=== PATIENT | male | born 1985 | race Two or more races ===

== ENCOUNTER 2016-05-18 16:42 | Emergency (ER) | payer OTHER ==
--- NOTE | 2016-05-18 16:53 | ER Document Report ---
ED Medical Screen (RME) - General Stated Complaint: VOMITING Mode of Arrival: Medic Information source: Patient Notes: Patient presents with nausea, vomiting, and diarrhea. Patient has had generalized body aches. Symptoms started today. EMS reports that patient was having muscle spasms. Patient was given Zofran 8 mg, 1 L IV fluid, and 1 L of LR. Cramping resolved after IV fluid administration. Upon arrival to emergency department patient went to the cafeteria and eat a meal. hx: PTSD I have greeted and performed a rapid initial assessment of this patient. A comprehensive ED assessment and evaluation of the patient, analysis of test results and completion of the medical decision making process will be conducted by additional ED providers. TRAVEL OUTSIDE OF THE [place] 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 Endocrine Medical History: Denies: Hx Diabetes Mellitus Type 2 GI Medical History: Denies: Hx Gastritis, Hx Gastroesophageal Reflux Disease Skin Medical History: Denies Hx Cellulitis, Denies Hx MRSA Past Surgical History: Reports: Hx Orthopedic Surgery - left knee, right shoulder - Immunizations Hx Diphtheria, Pertussis, Tetanus Vaccination: Yes - 2011 Physical Exam - Vital signs Vitals: Temp Pulse Resp BP Pulse Ox 98.0 F 94 18 113/67 97 05/18/16 16:54 05/18/16 16:54 05/18/16 16:54 05/18/16 16:54 05/18/16 16:54 - General General appearance: Appears well, Alert Course - Vital Signs Vital signs: Temp Pulse Resp BP Pulse Ox 98.0 F 94 18 113/67 97 05/18/16 16:54 05/18/16 16:54 05/18/16 16:54 05/18/16 16:54 05/18/16 16:54
[2016-05-18 18:21] LABS: ABSOLUTE LYMPHOCYTES (AUTO) 0.7 10^3/uL (0.5-4.7); ABSOLUTE MONOCYTES (AUTO) 0.5 10^3/uL (0.1-1.4); BASOPHILS % (AUTO) 0.1 % (0-2); EOSINOPHILS % (AUTO) 0.3 % (0-6); HEMATOCRIT 46.1 % (37.9-51.0); HEMOGLOBIN 15.6 g/dL (13.5-17.0); HGB HCT DIFFERENCE 0.7; MEAN CORPUSCULAR HEMOGLOBIN 29.9 pg (27.0-33.4); MEAN CORPUSCULAR VOLUME 88 fl (80-97); MONOCYTES % (AUTO) 8.7 % (3-13); RED BLOOD COUNT 5.24 10^6/uL (4.35-5.55); RED CELL DISTRIBUTION WIDTH 13.3 % (11.5-14.0); SEGMENTED NEUTROPHILS % (AUTO) 79.9 % (42-78); WHITE BLOOD COUNT 6.2 10^3/uL (4.0-10.5)
[2016-05-18 18:25] LABS: APPEARANCE,URINE CLEAR; BILIRUBIN,URINE NEGATIVE (NEGATIVE); GLUCOSE, URINE NEGATIVE (NEGATIVE); KETONES,URINE NEGATIVE (NEGATIVE); LEUKOCYTE ESTERASE,URINE NEGATIVE (NEGATIVE); NITRITE,URINE NEGATIVE (NEGATIVE); PROTEIN,URINE NEGATIVE (NEGATIVE); URINE SPECIFIC GRAVITY 1.017; UROBILINOGEN,URINE NEGATIVE mg/dL (<2.0)
[2016-05-18 18:38] LABS: ALANINE AMINOTRANSFERASE 74 U/L (21-72); ALBUMIN 4.5 g/dL (3.5-5.0); ALKALINE PHOSPHATASE 74 U/L (38-126); ANION GAP 11 (5-19); ASPARTATE AMINO TRANSFERASE 35 U/L (17-59); BILIRUBIN,TOTAL 1.8 mg/dL (0.2-1.3); BLOOD UREA NITROGEN 16 mg/dL (7-20); CALCIUM 9.6 mg/dL (8.4-10.2); CARBON DIOXIDE 28 mmol/L (22-30); CHLORIDE 101 mmol/L (98-107); CREATINE KINASE 284 U/L (55-170); CREATININE RESULT 0.95 mg/dL (0.52-1.25); GLUCOSE 73 mg/dL (75-110); LIPASE 103.2 U/L (23-300); POTASSIUM 4.3 mmol/L (3.6-5.0); SODIUM 139.9 mmol/L (137-145); TOTAL PROTEIN 7.2 g/dL (6.3-8.2)
--- NOTE | 2016-05-18 21:09 | ER Document Report ---
ED GI/ - General Chief Complaint: Nausea/Vomiting/Diarrhea Stated Complaint: VOMITING Mode of Arrival: Medic Information source: Patient Notes: This is a 31-year-old male who presents with nausea vomiting diarrhea. He states that he awoke at 4:00 this morning with the symptoms and has had multiple episodes of vomiting and diarrhea since. Around noon, he experienced for body cramping which worried him and he called EMS. EMS did give 1 L normal saline IV as well as 8 mg of Zofran. Patient has since received a second liter of IV fluids and has been tolerating by mouth since the Zofran. He was actually noted to leave the ER and eat at the cafeteria. He denies any known sick contacts recently and no recent travel. TRAVEL OUTSIDE OF THE [place] 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 EENT: Denies eye, ear, throat, or mouth pain or symptoms. Denies nasal or sinus congestion. CARDIOVASCULAR: Denies chest pain. RESPIRATORY: Denies cough, cold, or chest congestion. Denies shortness of breath, difficulty breathing, or wheezing. GASTROINTESTINAL: As per history of present illness GENITOURINARY: Denies difficulty urinating, painful urination, burning, frequency, or blood in urine. MUSCULOSKELETAL: Denies neck or back pain or joint pain or swelling. SKIN: Denies rash or skin lesions. HEMATOLOGIC : Denies easy bruising or bleeding. LYMPHATIC: Denies swollen, enlarged glands. NEUROLOGICAL: Denies altered mental status or loss of consciousness. Denies headache. PSYCHIATRIC: Denies anxiety or stress or depression. ALL OTHER SYSTEMS REVIEWED AND NEGATIVE. Physical Exam - Vital signs Vitals: Temp Pulse Resp BP Pulse Ox 98.0 F 94 18 113/67 97 05/18/16 16:54 05/18/16 16:54 05/18/16 16:54 05/18/16 16:54 05/18/16 16:54 - Notes Notes: PHYSICAL EXAMINATION: GENERAL: Well-appearing, well-nourished and in no acute distress. HEAD: Atraumatic, normocephalic. EYES: Pupils equal round and reactive to light, extraocular movements intact, sclera anicteric, conjunctiva are normal. ENT: nares patent, oropharynx clear without exudates. Moist mucous membranes. NECK: Normal range of motion, supple without lymphadenopathy LUNGS: Breath sounds clear to auscultation bilaterally and equal. No wheezes rales or rhonchi. HEART: Regular rate and rhythm without murmurs ABDOMEN: Soft, nontender, normoactive bowel sounds. No guarding, no rebound. No masses appreciated. EXTREMITIES: Normal range of motion, no pitting or edema. No cyanosis. NEUROLOGICAL: Cranial nerves grossly intact. Normal speech, normal gait. Normal sensory, motor exams PSYCH: Normal mood, normal affect. SKIN: Warm, Dry, normal turgor, no rashes or lesions noted. Course - Vital Signs Vital signs: Temp Pulse Resp BP Pulse Ox 98.2 F 75 16 110/71 98 05/18/16 21:15 05/18/16 21:15 05/18/16 21:15 05/18/16 21:15 05/18/16 21:15 - Laboratory Result Diagrams: 05/18/16 18:00 05/18/16 18:00 Laboratory results interpreted by me: 05/18/16 05/18/16 05/18/16 18:00 18:00 18:00 Plt Count 141 L Seg Neutrophils % 79.9 H Lymphocytes % 11.0 L Glucose 73 L Total Bilirubin 1.8 H ALT 74 H Creatine Kinase 284 H Urine Ascorbic Acid 40 H Discharge - Discharge Clinical Impression: Nausea vomiting and diarrhea Condition: Stable Disposition: HOME, SELF-CARE Additional Instructions: VOMITING: Vomiting (or nausea without vomiting) can be caused by many other different problems. It can mean that something's wrong with the stomach, such as ulcers or inflammation or the intestinal tract, such as appendicitis. But it can also be a symptom of a problem that has nothing to do with the stomach or intestines. Vomiting is common with severe headaches, earaches, tonsillitis, and kidney infections, etc. We see it with pneumonia or heart attacks. Drugs can cause nausea and vomiting. Many abdominal problems cause vomiting; for example, gallstones, kidney stones, pancreatitis, and intestinal obstruction ( blocked bowels). In most cases, curing the vomiting depends on fixing the problem that caused it. For temporary relief, we may use an anti-nausea medicine. For home use, we can prescribe suppositories, chewable pills, pills that dissolve in the mouth, or liquid anti-nausea drugs. If the vomiting seems to be caused by a problem in the stomach, acid-suppressing drugs may be prescribed as well. It's important to avoid dehydration. Sip small amounts of clear liquids ( soft drinks, tea, broth, etc) . Try to take fluids frequently even if you are vomiting to prevent dehydration. Take increasing amounts of fluid and when liquids are being consumed successfully, advance to small amounts of bland food (toast, soups, mashed potatoes, etc.) until you are able to resume a regular diet. Avoid aspirin, tobacco, and alcohol. If the vomiting worsens, if the problem that's making you vomit worsens, or if there's evidence of bleeding in the stomach (such as black, tarry stool, or bloody or black vomit), you should return immediately. Also, return if abdominal pain worsens or becomes localized to one area or you develop high fever. Call your doctor if you aren't improved in 24 hours. DIARRHEA, NON-SPECIFIC: Diarrhea means frequent, watery stools. There are many causes. Any problem that keeps the intestinal tract from absorbing water from the stool can lead to diarrhea. A sudden new diarrhea problem is usually caused by a virus, food sensitivity, toxic bacteria, or drugs. In this case, we expect the problem to go away soon. Testing is done only if you seem seriously ill from the diarrhea. If you have chronic diarrhea, or diarrhea that keeps coming back, we need to find out why. Chronic diarrhea can be due to inflammation of the bowels such as Crohn's disease or ulcerative colitis, food sensitivity such as intolerance to lactose or wheat protein, irritable bowel syndrome, and other problems. If your diarrhea is a significant problem but it's not clear why you have it, we' ll refer you to a specialist for further testing. During an episode of diarrhea, drink small amounts (two to six ounces) of clear liquids (soft drinks, sport drinks, herb teas, broth, etc). Take fluids frequently to prevent dehydration. It's usually not a problem to take mild anti- diarrhea medication such as Kaopectate or Pepto-Bismol. As the diarrhea eases, advance to small amounts of bland food (mashed potato, toast) for 24 hours. Call the physician if blood appears in your vomit or stool, if vomiting lasts longer than 24 hours, if the abdominal pain worsens or becomes localized to one area, if you develop high fever, or if you become lightheaded and weak. VIRAL SYNDROME: The physician has diagnosed a viral infection. Viruses not only cause "colds," but can cause many different symptoms including generalized aching, fever, headache, cough, diarrhea, nausea, vomiting, and fatigue. The treatment, for the most part, is simply relief of symptoms. This means that antibiotics are usually not given. Rest, fluids, pain medications and, occasionally, medication for the specific symptoms that are most bothersome will be prescribed. Use good handwashing to avoid passing the virus to others. Shared toys should be cleaned with disinfectant. Clean the toilets, sinks, and counter surfaces in bathrooms. Launder clothing in hot water. Contact the physician if you develop any new or unusual symptoms such as severe headache, stiff neck, high fever, chest pain, productive cough, or shortness of breath. You should be rechecked if you don't see marked improvement within seven to 10 days. INTRAVENOUS (I V) FLUIDS: As part of your care today, you received intravenous (IV) fluids. IV fluids are administered to patients who are dehydrated or to those who have certain chemical (electrolyte) abnormalities that need correcting. ANTINAUSEA MEDICATION: You have been given a medication to suppress nausea and vomiting. This type of medication can be given as a shot, pill, or suppository. It will usually last for many hours. Pills and shots usually last six to eight hours. For the typical illness, only one or two doses of the medication may be necessary. Mild lightheadedness may occur. This type of medicine can cause drowsiness. Do not drive or operate dangerous machinery while under its influence. Do not mix with alcohol. See your doctor at once if you have muscle spasms or tightness, or uncontrollable motions (particularly of the neck, mouth, or jaw). Persistent vomiting or severe lightheadedness should also be evaluated by the physician. FOLLOW-UP CARE: If you have been referred to a physician for follow-up care, call the physician s office for an appointment as you were instructed or within the next two days. If you experience worsening or a significant change in your symptoms, notify the physician immediately or return to the Emergency Department at any time for re-evaluation. Prescriptions: Ondansetron [Zofran Odt 4 mg Tablet] 1 - 2 tab PO Q4H PRN #15 tab.rapdis PRN Reason: For Nausea/Vomiting
[2016-05-18 21:16] VITALS: BP 110/71
== END 2016-05-18 21:16 | disposition home or self-care (01) ==
LOC: ER 16:42
DX: R11.2 Nausea with vomiting, unspecified (principal); R19.7 Diarrhea, unspecified; R25.2 Cramp and spasm
CPT/HCPCS: 36415; 80053; 81001; 82550; 83690; 85025; 99284

== ENCOUNTER 2016-07-24 12:23 | Emergency (ER) | payer OTHER ==
[2016-07-24 12:33] VITALS: BP 146/85
--- NOTE | 2016-07-24 12:46 | ER Document Report ---
ED General - General Chief Complaint: Toothache Stated Complaint: TOOTH PAIN Mode of Arrival: Ambulatory Information source: Patient Notes: Patient's a 31-year-old male who presents with right upper tooth pain that started 5 days ago. He states he thought it was improving then over the past 2 days that worsened. He denies any facial swelling, gum swelling, drainage, difficulty breathing or difficulty swallowing. He denies any fever or chills but significant other in the room states she thought he did have a fever 2 days ago. He has tried Tylenol and ibuprofen at home with no relief. He does not have a dentist but plans on following up with one in [place]. TRAVEL OUTSIDE OF THE [place] 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 Endocrine Medical History: Denies: Hx Diabetes Mellitus Type 2 Renal/ Medical History: Denies: Hx Peritoneal Dialysis GI Medical History: Denies: Hx Gastritis, Hx Gastroesophageal Reflux Disease Skin Medical History: Denies Hx Cellulitis, Denies Hx MRSA Past Surgical History: Reports: Hx Orthopedic Surgery - left knee, right shoulder - Immunizations Hx Diphtheria, Pertussis, Tetanus Vaccination: Yes - 2011 Review of Systems - Review of Systems Constitutional: See HPI EENT: See HPI Cardiovascular: No symptoms reported Respiratory: No symptoms reported Gastrointestinal: No symptoms reported Genitourinary: No symptoms reported Male Genitourinary: No symptoms reported Musculoskeletal: No symptoms reported Skin: No symptoms reported Hematologic/Lymphatic: No symptoms reported Neurological/Psychological: No symptoms reported Physical Exam - Vital signs Vitals: Temp Pulse Resp BP Pulse Ox 98.9 F 86 18 146/85 H 100 07/24/16 12:32 07/24/16 12:32 07/24/16 12:32 07/24/16 12:32 07/24/16 12:32 Interpretation: Hypertensive - Notes Notes: PHYSICAL EXAM: CONSTITUTIONAL: Alert and oriented, well-appearing and in no acute distress. Appears uncomfortable. HENT: Normocephalic, atraumatic. Oropharynx clear without erythema, tonsilar exudate or malocclusion. Trachea midline. Uvula midline. Moist mucous membranes. NO gingival or buccal mucosal swelling noted. Dental caries to teeth #1-2. NECK: supple without lymphadenopathy. ROM intact. HEART: Regular rate and rhythm without murmurs. LUNGS: CTAB and equal. No wheezes, rales or rhonchi. EXTREMITIES: Normal range of motion, no pitting edema. No cyanosis. Cap Refill < 3 seconds. SKIN: Warm and dry. Normal turgor. No rashes or lesions noted. Course - Re-evaluation Re-evalutation: 07/24/16 12:54 Patient seen and examined. Vital signs are stable. No respiratory distress. Patient appears uncomfortable we'll give by mouth pain medication here. No evidence of dental abscess. Will discharge with empiric antibiotic coverage. Advised to follow-up with dentist.At this time, will discharge with return precautions and follow-up recommendations. Verbal discharge instructions given at the bedside and opportunity for questions given. Medication warnings reviewed. Patient is in agreement with this plan and has verbalized understanding of return precautions and the need for primary care follow-up in the next 24-72 hours. - Vital Signs Vital signs: Temp Pulse Resp BP Pulse Ox 98.9 F 86 18 146/85 H 100 07/24/16 12:32 07/24/16 12:32 07/24/16 12:32 07/24/16 12:32 07/24/16 12:32 Discharge - Discharge Clinical Impression: Toothache Condition: Stable Disposition: HOME, SELF-CARE Additional Instructions: TOOTHACHE: Your pain is due to dental decay. The tooth must be repaired in order for you to feel better. You will, therefore, be referred to a dentist. We do not have dentists on the staff at [facility]. Severe swelling or drainage around a tooth usually means a dental abscess. This also requires evaluation and treatment by the dentist, but antibiotics may be prescribed while awaiting dental treatment. You should be rechecked immediately if you develop major swelling of the face, increasing pain, a lump in the jaw or gums, headache, difficulty swallowing, or fever. ORAL NARCOTIC MEDICATION: You have been given a prescription for pain control. This medication is a narcotic. It's best taken with food, as nausea can result if taken on an empty stomach. Don't operate machinery or drive within six hours of taking this medication. Do not combine this medicine with alcohol, or with any medication which can cause sedation (such as cold tablets or sleeping pills) unless you get permission from the physician. Narcotics tend to cause constipation. If possible, drink plenty of fluids and eat a diet high in fiber and fruits. Please be aware that prescription narcotics also have the potential for abuse. People become addicted to these medications because of the general sense of wellbeing that they induce. This feeling along with a significant reduction in tension, anxiety, and aggression provides a stimulating seductive quality to these drugs. Once your pain is under control, we encourage you to discard your unused narcotics. FOLLOW-UP CARE: You have been referred for follow-up care to the dentists listed below. Call the dentists office for an appointment as you were instructed or within the next two days. If you experience worsening or a significant change in your symptoms, notify the physician immediately or return to the Emergency Department at any time for re-evaluation. [facility] [address] [place], [place] Thursday mornings, by appointment [facility] [address] [place] [address] [facility] [address] [facility] [address] [facility] [address] [email or web address] [address] [place] [address] Thursday- 8:00am to 5:00 pm Will see patients from other [facility]. Charges based on income and family size and accepts Medicare, Medicaid, and Insurances Will pull molars [facility] N. [id number] Hours of Operation 8:00 am - 4:30 pm weekdays The following dental offices accept Medicaid: [facility] Dr. Olivas Dr[address] Donovan Dr. Dixon Dr. Napier Brendan Lazcano, Eloise, and Shayla oral surgery Dr. Wakefield ([place]) Dr. Negron ([place]) [facility] Drs. Wilson and Haseeb ([place]) Dr. Bermudez ([place]) [facility] Dr. Carlton ([place]) Drs. Sanchez and ([place]) Medicaid Care Line Prescriptions: Amox Tr/Potassium Clavulanate [Augmentin 875-125 Tablet] 1 tab PO BID 10 Days Hydrocodone/Acetaminophen [[place] 5-325 mg Tablet] 1 tab PO Q6H PRN #10 tablet PRN Reason: Forms: Elevated Blood Pressure
[2016-07-24] MEDS ORDERED: OXYCODONE HCL IR 5 MG TABLET PO ONE (12:51)
== END 2016-07-24 13:00 | disposition home or self-care (01) ==
LOC: ER 12:23
DX: K08.89 Other specified disorders of teeth and supporting structures (principal)
CPT/HCPCS: 99282

== ENCOUNTER 2016-10-09 10:30 | Emergency (ER) | payer OTHER ==
[2016-10-09 10:34] VITALS: BP 122/71
[2016-10-09] MEDS ORDERED: LIDOCAINE 5% (700 MG) TRANSDERMAL ADH..PATCH TP ONE (10:56)
[2016-10-09] MEDS ORDERED: DEXAMETHASONE SOD PHOS INJ 10 MG/1 ML VIAL IM ONE (10:56)
--- NOTE | 2016-10-09 11:05 | ER Document Report ---
HPI - HPI Pain Level: 4 Notes: Patient is a 31-year-old male presents the ED complaining of right thoracic back pain that he noticed 3 days ago with no known injury. Pt states that he does have chronic low back pain with chronic occ radiculitis down both LE's b/ l. Patient states that the pain increases with twisting and flexion of the spine. The pain does not radiate. He has used otc NSAIDs with minimal relief. He does see the [place] [facility] as he is on disability for MH conditions. He denies any loss of control bowel or bladder, urinary retention. No position helps. Denies any drug allergies. Denies any daily medications. Denies any significant past medical history otherwise. Patient does not smoke and denies any illicit drug use. Denies any recent injections or procedures to his lower back. Denies any fever, headache, URI, sore throat, chest pain, palpitations, syncope, cough, shortness of breath, dyspnea, wheeze, abdominal pain, nausea/ vomiting/diarrhea, dysuria, hematuria, other joint pains, or rash. Denies sick contacts/recent travel/recent illness. No saddle anesthesia. - ROS Notes: REVIEW OF SYSTEMS: CONSTITUTIONAL : Denies fever, chills, or sweats. Denies recent illness. EENT: Denies eye, ear, throat, or mouth pain or symptoms. Denies nasal or sinus congestion or discharge. Denies throat, tongue, or mouth swelling or difficulty swallowing. CARDIOVASCULAR: Denies chest pain. Denies palpitations or racing or irregular heart beat. Denies ankle edema. RESPIRATORY: Denies cough, cold, or chest congestion. Denies shortness of breath, difficulty breathing, or wheezing. GASTROINTESTINAL: Denies abdominal pain or distention. Denies nausea, vomiting , or diarrhea. Denies blood in vomitus, stools, or per rectum. Denies black, tarry stools. Denies constipation. GENITOURINARY: Denies difficulty urinating, painful urination, burning, frequency, blood in urine, or discharge. MUSCULOSKELETAL: see hpi SKIN: Denies rash, lesions or sores. NEUROLOGICAL: See HPI. Denies confusion or altered mental status. Denies passing out or loss of consciousness. Denies dizziness or lightheadedness. Denies headache. Denies weakness or paralysis or loss of use of either side. Denies problems with gait or speech. Denies sensory loss. Denies seizures. PSYCHIATRIC: Denies anxiety or stress. Denies depression, suicidal ideation, or homicidal ideation. ALL OTHER SYSTEMS REVIEWED AND NEGATIVE. 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 NECK: Normal range of motion, supple without lymphadenopathy LUNGS: Breath sounds clear to auscultation bilaterally and equal. No wheezes rales or rhonchi. HEART: Regular rate and rhythm without murmurs, rubs, gallops. ABDOMEN: Soft, nontender, nondistended abdomen. No guarding, no rebound. No masses appreciated. Normal bowel sounds present. No CVA tenderness bilaterally. No pulsatile mass Musculoskeletal: LE b/l: FROM to passive/active. Strength 5+/5. Back: FROM to passive/active. Strength 5+/5. SLR negative b/l. No deformity , ecchymosis, abrasion/laceration noted. + tenderness to soft tissue rt T- paraspinal. + mild muscle spasming. No vertebral point tenderness. Extremities: No cyanosis, clubbing, or edema b/l. Peripheral pulses 2+. Capillary refill less than 3 seconds. NEUROLOGICAL: Normal speech, normal gait. Normal sensory, motor exams. Reflexes 2+ b/l LE. PSYCH: Normal mood, normal affect. SKIN: Warm, Dry, normal turgor, no rashes or lesions noted. - INFECTION CONTROL TRAVEL OUTSIDE OF THE [place] IN LAST 30 DAYS: No - RESPIRATORY O2 Sat by Pulse Oximetry: 99 Course - Re-evaluation Re-evalutation: 10/09/16 11:06 Patient is an afebrile, well-hydrated, 31-year-old male presents the ED with right thoracic back pain, suspect back strain and muscle spasming with a trigger point on exam. Vitals are stable. PE otherwise unremarkable for any focal neurological deficits. Low health risk factors for abscess/infection. Low suspicion for any expanding/ruptured AAA, cauda equina syndrome, epidural mass lesion, abscess, herniated disc causing severe spinal stenosis, meningitis. No imaging warranted at this time based on H&P. Decadron 10 mg given IM today. I will send him home with a prescription for Voltaren gel and baclofen to use as directed. Conservative measures otherwise for symptoms. Muscle relaxer precautions reviewed. Recheck with your PCM in 2-3 days. Return to the ED with any worsening/concerning symptoms as reviewed in discharge. Patient is in agreement. - Vital Signs Vital signs: Temp Pulse Resp BP Pulse Ox 98.1 F 71 16 122/71 99 10/09/16 10:33 10/09/16 10:33 10/09/16 10:45 10/09/16 10:33 10/09/16 10:33 Discharge - Discharge Clinical Impression: Thoracic back pain Qualifiers: Chronicity: acute Back pain laterality: right Qualified Code(s): M54.6 - Pain in thoracic spine Condition: Stable Disposition: HOME, SELF-CARE Instructions: Ice Packs ([facility]), Low Back Pain ([facility]), Muscle Strain ([facility]), Warm Packs ([facility]), Muscle Relaxers ([facility]) Additional Instructions: Rest Ice Tylenol/ibuprofen as needed Light stretches daily Strength exercises as able Moist heat and massage may help F/u with your PCP in 2-3 days for a recheck Consider consult(s) with Orthopedics, physical therapy for ongoing/worsening symptoms Return to the ED with any worsening symptoms and/or development of fever, headache, chest pain, palpitations, syncope, shortness of breath, trouble breathing, abdominal pain, n/v/d, blood in stool/urine, loss of control of bowel /bladder, urinary retention, muscle weakness/paralysis, numbness/tingling, or other worsening symptoms that are concerning to you. Prescriptions: Baclofen [Baclofen 10 mg Tablet] 5 mg PO BID PRN #10 tablet PRN Reason: Diclofenac Sodium [Voltaren] 4 gm TP QID PRN #100 gel..gm. PRN Reason: Referrals: [facility] [Provider Group] - Follow up as needed
== END 2016-10-09 11:19 | disposition home or self-care (01) ==
LOC: ER 10:30
DX: M54.6 Pain in thoracic spine (principal)
CPT/HCPCS: 99283; 96372; J1100

== ENCOUNTER 2018-12-10 09:31 | Emergency (ER) | payer OTHER, MEDICAID ==
[2018-12-10 09:37] VITALS: BP 125/75
--- NOTE | 2018-12-10 10:38 | ER Document Report ---
ED Medical Screen (RME) - General Chief Complaint: Back Pain Stated Complaint: BACK PAIN Time Seen by Provider: 12/10/18 09:55 Primary Care Provider: LASHON,MONIK [Primary Care Provider] - Follow up as needed Notes: Attempted to review and examine patient in room, RN Nora English as standby. Patient very hostile during the interview and would not allow provider to play and examination without increasing in his hostility. This provider attempted to explain to patient that in order to assess his area of back pain that the spine would need to be palpated. Patient increasingly agitated. This provider did not feel comfortable continuing with the examination this point and informed patient that we would move him to a different room and that he would get a different provider to see him so that he would be able to have a different encounter. musical instrument maker advised of situation and recommends having patient moved to bed 41. TRAVEL OUTSIDE OF THE [place] 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 Endocrine Medical History: Denies: Hx Diabetes Mellitus Type 2 Renal/ Medical History: Denies: Hx Peritoneal Dialysis GI Medical History: Denies: Hx Gastritis, Hx Gastroesophageal Reflux Disease Skin Medical History: Denies Hx Cellulitis, Denies Hx MRSA Past Surgical History: Reports: Hx Orthopedic Surgery - left knee, right shoulder - Immunizations Hx Diphtheria, Pertussis, Tetanus Vaccination: Yes - 2011 Physical Exam - Vital signs Vitals: Temp Pulse Resp BP Pulse Ox 97.8 F 61 18 125/75 98 12/10/18 09:36 12/10/18 09:36 12/10/18 09:36 12/10/18 09:36 12/10/18 09:36 - Psychological Associated symptoms: Agitated, Other - hostile Course - Re-evaluation Re-evalutation: 12/10/18 10:30 Patient was noted to be standing at the counter and pod 5 and this provider asked if he needed anything as this provider was the only person in the nurses station at the time. Patient replied that yes he wanted this provider's name and wanted to know why he has to see somebody else. Attempted to explain to patient that clearly there was a disconnect during the encounter and that I was attempting to give patient a different experience removing myself from the encounter. Patient advised that a provider would be in to see him shortly. Patient increasingly verbally aggressive. Patient's voice increasing in volume, RN Jabari came to the desk and redirected the patient back to room, security was notified of situation. musical instrument maker advised of additional encounter. Dr. Deutsch has chart and will be in to see patient shortly. - Vital Signs Vital signs: Temp Pulse Resp BP Pulse Ox 97.8 F 61 18 125/75 98 12/10/18 09:36 12/10/18 09:36 12/10/18 09:36 12/10/18 09:36 12/10/18 09:36 Doctor's Discharge - Discharge Referrals: [facility] [[facility]] - Follow up as needed
--- NOTE | 2018-12-10 10:51 | ER Document Report ---
ED Neck/Back Problem - General Chief Complaint: Back Pain Stated Complaint: BACK PAIN Time Seen by Provider: 12/10/18 09:55 Primary Care Provider: [facility] [Primary [facility]] - Follow up as needed Mode of Arrival: Ambulatory Information source: Patient, Relative TRAVEL OUTSIDE OF THE [place] IN LAST 30 DAYS: No - HPI Patient complains to provider of: Pain - Pt. with long h/o chronic LBP with increased pain today after going for a jog yesterday. 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 Endocrine Medical History: Denies: Hx Diabetes Mellitus Type 2 Renal/ Medical History: Denies: Hx Peritoneal Dialysis GI Medical History: Denies: Hx Gastritis, Hx Gastroesophageal Reflux Disease Skin Medical History: Denies Hx Cellulitis, Denies Hx MRSA Past Surgical History: Reports: Hx Orthopedic Surgery - left knee, right sh oulder - Immunizations Hx Diphtheria, Pertussis, Tetanus Vaccination: Yes - 2011 Review of Systems - Review of Systems Constitutional: No symptoms reported EENT: No symptoms reported Cardiovascular: No symptoms reported Respiratory: No symptoms reported Gastrointestinal: No symptoms reported Musculoskeletal: See HPI, Back pain Neurological/Psychological: No symptoms reported -: Yes All other systems reviewed and negative Physical Exam - Vital signs Vitals: Temp Pulse Resp BP Pulse Ox 97.8 F 61 18 125/75 98 12/10/18 09:36 12/10/18 09:36 12/10/18 09:36 12/10/18 09:36 12/10/18 09:36 - General General appearance: Appears well In distress: None - HEENT Neck: Normal - Respiratory Respiratory status: No respiratory distress Breath sounds: Normal - Cardiovascular Rhythm: Regular Heart sounds: Normal auscultation - Abdominal Inspection: Normal Tenderness: Nontender - Back Back: Tender - min-mod TTP lumbar spine diffusely with neg SLR; N/V intact Course - Re-evaluation Re-evalutation: 12/10/18 12:28 pt. expressed desire to go -- [facility] - Vital Signs Vital signs: Temp Pulse Resp BP Pulse Ox 97.8 F 61 18 125/75 98 12/10/18 09:36 12/10/18 09:36 12/10/18 09:36 12/10/18 09:36 12/10/18 09:36 - Diagnostic Test Radiology reviewed: Reports reviewed - ct- plus DJD Discharge - Discharge Clinical Impression: Low back pain Qualifiers: Chronicity: acute Back pain laterality: bilateral Sciatica presence: without sciatica Qualified Code(s): M54.5 - Low back pain Condition: Stable Disposition: HOME, SELF-CARE Instructions: Low Back Pain ([facility]) Additional Instructions: rest, take meds as prescribed, return if worse Prescriptions: Cyclobenzaprine HCl [Flexeril 10 mg Tablet] 10 mg PO TIDP PRN #15 tab PRN Reason: Etodolac [Lodine] 400 mg PO BID #14 tablet Referrals: [facility] [Primary [facility]] - Follow up as needed
--- NOTE | 2018-12-10 12:04 | RADIOLOGY REPORT (SQ) ---
EXAM DESCRIPTION: CT LUMBAR SPINE WITHOUT COMPLETED DATE/TIME: 12/10/2018 11:42 am REASON FOR STUDY: severe LBP COMPARISON: CT of the abdomen and pelvis with contrast from 01/15/2014. TECHNIQUE: Axial images acquired through the lumbar spine without intravenous contrast. Images revi ewed with lung, soft tissue and bone windows. Reconstructed coronal and sagittal MPR images reviewed . All images stored on PACS. All CT scanners at this facility use dose modulation, iterative reconstruction, and/or weight based d osing when appropriate to reduce radiation dose to as low as reasonably achievable (ALARA). [facility]: Dose Right [facility]: CareDose [facility]: Dose Right [facility]: Teradose 4D [facility]: Xtellus LIMITATIONS: None. FINDINGS: SEGMENTATION: There are 5 lumbar-type vertebral bodies. There is no transitional anatomy at the lumbosacral junction. ALIGNMENT: Normal. VERTEBRAL BODIES: The lumbar vertebral body heights are preserved. There is no fracture. DISCS: Evaluation is limited due to the absence of injured the thecal contrast. The intervertebral d isc spaces are preserved. There is no sizable disc protrusion. PEDICLES, TRANSVERSE PROCESSES: Intact. FACETS, POSTERIOR ELEMENTS: Intact. HARDWARE: None in the spine. VISUALIZED RIBS: No fractures. SOFT TISSUES: No abnormality. OTHER: Bridging osteophytes in the anterior aspect of the SI joints. IMPRESSION: 1. No fracture or malalignment of the lumbar spine. 2. Bridging osteophytes in the anterior aspect of the SI joints. TECHNICAL DOCUMENTATION: JOB ID: [id number] Quality ID # [id number]: Final reports with documentation of one or more dose reduction techniques (e.g., Au tomated exposure control, adjustment of the mA and/or kV according to patient size, use of iterative reconstruction technique) 2010 [employer]- All Rights Reserved Reading location - IP/workstation name: [email or web address]
== END 2018-12-10 12:28 | disposition home or self-care (01) ==
LOC: ER 09:31
DX: M54.5 Low back pain (principal); E11.9 Type 2 diabetes mellitus without complications
CPT/HCPCS: 72131; 99283